=== PATIENT | female | born 1935 | race Caucasian/White ===

== ENCOUNTER 2018-01-17 10:34 | Emergency (ER) | payer MEDICARE, OTHER ==
--- NOTE | 2018-01-17 11:58 | XRAY Report ---
EXAM: CHEST RADIOGRAPHY EXAM DATE: 01/17/2018 11:34 AM. CLINICAL HISTORY: Cough. COMPARISON: 10/20/2015. TECHNIQUE: 2 views. FINDINGS: Lungs/Pleura: Bibasilar areas of scarring. Bullous changes upper lung field No pleural effusion. No p neumothorax. Hyperinflated with increased volume. Mediastinum: Heart and mediastinal contours are unremarkable. Other: Mild kyphosis thoracic spine. IMPRESSION: 1. COPD. 2. No active cardiopulmonary disease [facility] Referring Provider Line: [phone] SITE ID: [id number]
--- NOTE | 2018-01-17 11:58 | XRAY Preliminary Report ---
Exam: XR CHEST 2 VIEW X-RAY IMPRESSION: 1. COPD. 2. No active cardiopulmonary disease [facility] SITE ID: [id number]
--- NOTE | 2018-01-17 12:50 | ED Physician Documentation ---
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 to ER for 8 days of fever cough myalgia weakness seen by PMD early in course, had bandar, started on amox, not better using her qvar and anoro her pulmonogist wanted her to come to the ED for further testing Review of Systems Constitutional: reports: Fever, Myalgias, Fatigue. denies: Chills Respiratory: reports: Dyspnea, Cough, Wheezing GI: reports: Diarrhea (after being on amox). denies: Vomiting Endocrine: denies: Easy bruising / bleeding Immunocompromised: denies: Immunocompromised PD PAST MEDICAL HISTORY - Past Medical History Cardiovascular: DC, Other Respiratory: COPD, Shortness of breath, Other Neuro: None Endocrine/Autoimmune: Other GI: GERD : None HEENT: Chronic vision loss, Glaucoma, Chronic hearing loss Psych: Depression Musculoskeletal: Osteoporosis Derm: None Other Past Medical History: MAC - Past Surgical History Cardiovascular: Coronary stent Neuro: Other HEENT: Cataracts, Tonsil/Adenoidectomy - Present Medications Home Medications: Ambulatory Orders Medication Instructions Recorded Confirmed Aspirin [Aspir 81] 81 mg PO DAILY 01/06/15 10/20/15 Beclomethasone 40 Mcg [Qvar 40] 100 puffs INH PRN 01/06/15 10/20/15 Pravastatin Sodium 20 mg PO DAILY 01/06/15 10/20/15 Umeclidinium Brm/Vilanterol Tr 1 each IH DAILY 01/06/15 10/20/15 [Anoro Ellipta 62.5-25 Mcg INH] traZODone [Desyrel] 25 mg PO QPM 01/06/15 10/20/15 - Allergies Allergies/Adverse Reactions: Allergies Allergy/AdvReac Type Severity Reaction Status Date / Time atorvastatin calcium * AdvReac Cramps Verified 10/20/15 17:55 [From Lipitor] Beta-Blockers AdvReac Dizziness Verified 10/20/15 17:55 (Beta-Adrenergic Bloc Sulfa (Sulfonamide AdvReac Rash Verified 10/20/15 17:55 Antibiotics) - Social History Does the pt smoke?: No Smoking Status: Never smoker Does the pt drink ETOH?: Yes Does the pt have substance abuse?: No - Immunizations Immunizations are current?: Yes PD ED PE NORMAL - Vitals Vital signs reviewed: Yes - General General: Alert and oriented X 3 - HEENT HEENT: Atraumatic - Cardiac Cardiac: RRR - Respiratory Respiratory: No respiratory distress, Other (dec R base) - Derm Derm: Normal color - Extremities Extremities: Normal ROM s pain, No edema, No calf tenderness / cord - Neuro Neuro: Alert and oriented X 3 Results - Vitals Vitals: Vital Signs - 24 hr 01/17/18 01/17/18 10:38 12:59 Temperature 37.0 C Heart Rate 74 68 Respiratory 16 16 Rate Blood Pressure 121/66 141/72 H O2 Saturation 100 98 Oxygen O2 Source Room air - Labs Labs: Laboratory Tests 01/17/18 11:38 Influenza A (Rapid) Negative Influenza B (Rapid) Negative Influenza Types A,B Ag - - Rads (name of study) COPD Radiology: See rad report (NACPD, hyperinflated) PD MEDICAL DECISION MAKING - ED course ED course: CXR neg flue neg (admittedly not 100% sensitive but pt also sick for 8 days so tamiflu unlikely to help) 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 The xray did not show pneumonia. I have paged your sports medicine specialist to see if she wants any other tests run ( sputum cultures etc) and how she would like your symptoms managed (steroids for the wheezing, cough suppressants etc) You wanted to go home after receiving the test results and that is fine. Please continue your usual medications for now and call your sports medicine specialist for further advice
[2018-01-17 13:01] VITALS: BP 141/72
== END 2018-01-17 15:30 | disposition home or self-care (01) ==
LOC: ED 10:34
DX: J06.9 Acute upper respiratory infection, unspecified (principal); J44.9 Chronic obstructive pulmonary disease, unspecified; I25.2 Old myocardial infarction; Z86.19 Personal history of other infectious and parasitic diseases; Z79.82 Long term (current) use of aspirin; Z79.51 Long term (current) use of inhaled steroids; Z95.5 Presence of coronary angioplasty implant and graft
CPT/HCPCS: 71046; 87070; 87205; 87275; 87276; 99283